=== PATIENT | male | born 1930 | race Caucasian/White ===

== ENCOUNTER 2016-08-27 19:01 | Inpatient (IN) ==
[2016-08-27] MEDS ORDERED: ONDANSETRON 4 MG/2 ML VIAL IV STA (19:36)
[2016-08-27] MEDS ORDERED: ASPIRIN 325 MG TABLET PO STA (19:36)
[2016-08-27] MEDS ORDERED: NITROGLYCERIN SL 0.4 MG TABLET SL PRN (19:36)
[2016-08-27] MEDS ORDERED: SODIUM CHLORIDE 0.9% 1,000 ML IV STA (19:36)
--- NOTE | 2016-08-27 19:42 | Emergency Department Note ---
IMindy Hilary, am scribing for, and in the presence of, Messi Mena MD 19: 39. IRajesh Andrew, MD, personally performed the services described in this documentation, ascribed by Michelle Guillen in my presence, and it is both accurate and complete 942 . Arrival - Arrival Chief Complaint: Chest Pain Stated Complaint: chest pain ED Nursing Triage Note: pt to [facility] with family, pt c/o cp radiating to left arm since this am. Mode of Arrival: Wheelchair Limitations: No Limitations Source: Patient - History of Present Illness HPI Narrative: Pt is a 85 y/o white male presenting to the ED with c/o chest pain which onset 2 days ago. He states that he was sitting, watching TV when his chest pain started. Pt confirms chest pain and nausea during onset but denies abdominal pain or melena. He says its a dull ache on his left side when he is just sitting but when he walks around the pain starts again. He reports that unlike normal he has to walk with his cane or hold on to something. No other complaints or problems stated in the ED. Pt has a PMHx of CAD, HTN, [place], Pacemaker and NIDDM. Onset (ago): day(s) Consistency: constant, now resolved Severity: mild Quality: dull Allergies/Adverse Reactions: Allergies Allergy/AdvReac Type Severity Reaction Status Date / Time No Known Allergies Allergy Verified 08/27/16 19:12 Home Medications: Home Medications Medication Instructions Recorded Confirmed Type Finasteride 5 mg PO BEDTIME 10/09/14 08/27/16 History Tamsulosin [Flomax] 0.4 mg PO BEDTIME 10/09/14 08/27/16 History Aspirin [Ecotrin] 81 mg PO BEDTIME 04/04/16 08/27/16 History Acetaminophen Tab [Tylenol Tab] 325 mg PO Q4H PRN 07/03/16 08/27/16 History Amlodipine Besylate [Amlodipine 2.5 mg PO DAILY 08/10/16 08/27/16 History Besylate] Carvedilol [Carvedilol] 12.5 mg PO BID 08/10/16 08/27/16 History Meclizine HCl 25 mg PO DAILY PRN 08/10/16 08/27/16 History Meloxicam 7.5 mg PO DAILY 08/10/16 08/27/16 History Omeprazole [Omeprazole] 20 mg PO DAILY 08/10/16 08/27/16 History Simvastatin [Simvastatin] 40 mg PO QPM 08/10/16 08/27/16 History metOLazone [Metolazone] 2.5 mg PO QOTHER DAY 08/10/16 08/27/16 History Review of System - Review of System 12 point system: reviewed and no additional remarkable complaints except as stated - Review of System Constitutional: Absent: fever Cardiovascular: Present: chest pain (left side) Gastrointestinal: Present: nausea. Absent: abdominal pain Medical,Surgical,& Family Hx - Medical History Cardio: History of: CAD, Hypertension, [place], Pacemaker Endocrine: History of: Diabetes Mellitus (NIDDM) Musculoskeletal: History of: Musculoskeletal Problems - Surgical History Cardiac Surgeries: Sugical HX of: Cardiac Catheterization, Cardiac Surgery ( bypass several years ago), Internal Defibrillator Thoracic Surgeries: Patient denies;: Organ Transplant, Lobectomy HEENT Surgeries: Patient denies: Thyroid Surgery Abdominal Surgeries: Surgical HX of: Abdominal Surgery, Cholecystectomy - Family History Family History: Reports;: Family Cancer (sister), Family Heart Disease (brother- [place]), Family Hypertension (mother) - Social History Smoking Status: Never smoker Frequency of Alcohol Use: None Type of Drug Use: None Exam Vital Signs: Vital Signs Temperature 97.8 F 08/27/16 22:18 Pulse Rate 71 08/27/16 22:18 Respiratory Rate 20 08/27/16 22:18 Blood Pressure 159/73 08/27/16 22:18 O2 Sat by Pulse Oximetry 100 08/27/16 22:18 - General General appearance: alert, in no apparent distress - Head Head exam: Present: atraumatic, normocephalic - Eye Eye exam: Present: normal appearance, PERRL, EOMI - ENT ENT exam: Present: mucous membranes moist, TM's normal bilaterally. Absent: mucous membranes dry - Neck Neck exam: Present: full ROM, trachea midline. Absent: tenderness - Chest Chest inspection: Present: symmetric chest wall rise. Absent: tenderness - Respiratory Respiratory exam: Present: normal lung sounds bilaterally. Absent: respiratory distress - Cardiovascular Cardiovascular exam: Present: regular rate, normal rhythm, normal heart sounds. Absent: murmur, rubs, gallop - Abdominal Exam Abdominal exam: Present: soft, normal bowel sounds. Absent: distention, tenderness - Extremities Exam Extremities exam: Present: full ROM. Absent: tenderness - Back Exam Back exam: Present: full ROM. Absent: tenderness - Neurological Exam Neurological exam: Present: alert, oriented X3, CN II-XII intact. Absent: motor sensory deficit - Psychiatric Psychiatric exam: Present: normal affect, normal mood - Skin Skin exam: Present: warm, dry, intact, normal color. Absent: rash Course Course Narrative: Sodium 128, negative troponin. Patient discussed with Dr. Evans for admission and repeat troponin levels with cardiology consult in the morning. Results - Labs CBC & BMP: 08/27/16 19:18 08/27/16 19:18 Lab Results: I have reviewed the patients labs Labs: Laboratory Tests 08/27/16 08/27/16 08/27/16 19:18 19:18 19:18 WBC 7.5 RBC 3.94 Hgb 12.3 L Hct 34.0 L MCV 86.3 L MCHC 36.2 H Plt Count 214 [place] # (Auto) 0.9 H Sodium 128 L Potassium 4.3 Chloride 92 L Carbon Dioxide 30 BUN 31 H Creatinine 1.70 H Glucose 135 H Calculated Osmolality 265.1 L AST 41 H Alkaline Phosphatase 42 L Troponin I < 0.015 Total Protein 6.5 - Diagnostic Findings Procedure: Chest x-ray: report reviewed by me (Mild atelectatic change in the lower lungs. Otherwise unchanged. Stable cardiomegaly. Pacemaker as before) Disposition Clinical Impression: Atypical chest pain Case discussed with: patient, patient's family Disposition: Still a Patient Condition: Stable
[2016-08-27] MEDS ORDERED: ONDANSETRON 4 MG/2 ML VIAL ONE (19:43)
[2016-08-27] MEDS ORDERED: ASPIRIN 325 MG TABLET ONE (19:43)
[2016-08-27 19:44] LABS: Basophils # 0.1 10*3/uL (0.0-0.2); Basophils % 0.7 % (0.0-0.8); Eosinophils # 0.1 10*3/uL (0.0-0.87); Eosinophils % 1.1 % (0.00-10.9); Hemoglobin 12.3 GM/DL (14.0-18.0); Immature Granulocytes % 0.4 %; Immature Granulocytes Absolute 0.03 #; Lymphocytes % 39.7 % (21.2-54.2); Mean Corpuscular HGB Conc 36.2 GM/DL (32-36); Mean Corpuscular Hemoglobin 31 PG (27-34); Mean Corpuscular Volume 86.3 FL (87-102); Mean Platelet Volume 10.6 FL (9.6-12.0); Monocytes # 0.9 10*3/uL (0.11-0.8); Monocytes % 11.9 % (1.7-12.7); Neutrophils # 3.5 10*3/uL (1.4-7.4); Neutrophils % 46.2 % (38.7-73.9); Platelet Count 214 T/CUMM (130-400); Red Blood Count 3.94 MC/CUMM (3.8-5.5); Red Cell Distribution Width 13.1 % (9.3-17.3); White Blood Count 7.5 T/CUMM (4-12)
[2016-08-27 20:05] LABS: Albumin 3.7 G/DL (3.4-5.0); Bilirubin,Total 0.7 MG/DL (0.2-1.0); Calcium 9.3 MG/DL (8.5-10.1); Osmolality,Calculated 265.1 MOS/KG (273-304); Potassium 4.3 MMOL/L (3.5-5.1); Total Protein 6.5 G/DL (6.4-8.3)
--- NOTE | 2016-08-27 20:20 | XRay Report ---
History: Chest pain Date: 08/27/2016 Study: Chest x-ray AP portable Comparison exam: February 06, 2016 There is cardiomegaly as before. The mediastinal contours are unchanged in this patient status post prior median sternotomy. The pulmonary vasculature is not engorged. A left subclavian multiple lead transvenous pacemaker/defibrillator device is intact and unchanged. There is no gross pleural effusion. There is some minimal strandy nonspecific atelectasis in the lower lungs, right greater than left. There are some scattered emphysematous changes. Osseous structures are unchanged. Impression: Mild atelectatic change in the lower lungs. Otherwise unchanged. Stable cardiomegaly. Pacemaker as before PROCEDURE INTERPRETED AT [facility] DEPARTMENT OF RADIOLOGY Final Report Signed by: Dr. Juana Rai
[2016-08-27] MEDS ORDERED: ONDANSETRON 4 MG/2 ML VIAL IV PRN (20:38)
[2016-08-27] MEDS ORDERED: ACETAMINOPHEN 325 MG TABLET PO PRN (20:38)
[2016-08-27] MEDS ORDERED: MORPHINE 2 MG/1 ML SYRINGE IV PRN (20:38)
[2016-08-27] MEDS: SODIUM CHLORIDE 0.9% 1,000 ML IV SCH (22:23)
[2016-08-27] MEDS: DOCUSATE SODIUM 100 MG CAPSULE PO SCH (22:24)
--- NOTE | 2016-08-28 04:34 | EKG Report ---
Stationary ECG Study [facility] ER Test Date: 08/27/2016 7:08:01 PM Pat Name: HERVE MOSQUEDA Department: Room: 293 Gender: M Supply Teacher: : 1930 Requested by: Messi Mena Order Number: [id number] Reading MD: MELISSA LINDQUIST Intervals [place] Rate: 72 P: -34 MO: 130 QRS: -41 QRSD: 129 T: -31 QT: 399 QTc: 423 Interpretive Statements SINUS RHYTHM OLD INFERIOR INFARCT NONSPECIFIC INTRAVENTRICULAR CONDUCTION DELAY Electronically Signed On 08-28-16 13:02:42 CDT by MELISSA LINDQUIST [email or web address]
[2016-08-28] MEDS: SODIUM CHLORIDE 0.9% 1,000 ML IV SCH ×3 (05:57→13:39)
[2016-08-28] MEDS: PANTOPRAZOLE 40 MG TABLET PO SCH (08:46)
[2016-08-28] MEDS: DOCUSATE SODIUM 100 MG CAPSULE PO SCH ×2 (08:47→20:53)
[2016-08-28 11:04] LABS: Troponin I Only < 0.015 NG/ML (0.00-0.045)
--- NOTE | 2016-08-28 12:02 | Cardiology Consult Note ---
History of Present Illness - Data of Consult Patient: known to practice within the last 3 years - Consult Narrative History of present illness: Cardiology consult 85-year-old man admitted with weakness dizziness hyponatremia 128 and atypical left arm pain. Patient was seen with his Josie and his sons Khurram and Jesse. The chest x-ray shows cardiomegaly and a calcified aortic knob but no heart failure. EKG shows atrial pacing with left axis deviation and ST-T wave changes. Troponin is negative 2. The patient does have chronic renal insufficiency with BUN 31 creatinine 1.70. This patient has been dizzy for several weeks. He gets when he had it when he gets up quickly and fell about 2 weeks ago. He is reluctant to use a cane. His appetite is fair. His sons report that he eats erratically. He has a long history of GE reflux and esophageal stricture dilatation. His last EGD was 2014 which showed hiatal hernia only. Currently taking Prilosec 20 mg daily. He does have BPH symptoms and takes Flomax 0.4 mg and finasteride 5 mg daily. He is taking metolazone 2.5 mg every other day. Patient has a long cardiac history. He is status post remote inferior infarction. He is status post two-vessel CABG with GUZMAN graft to LAD and vein graft to right coronary around 1994. The RCA vein graft is noted to be occluded. He is status post MedtronicEvera XT dual-chamber AICD by Dr. Romano 4 EOL July 10. He has had no shocks. He denies sustained palpitations. He had an abnormal but stable Lexiscan cardiac stress test October 09, 2014 which showed inferior scar, no ischemia, EF 44%. He does have type 2 diabetes. Chronic hypertension. Non-smoker nondrinker. Lab data today Sodium 128 potassium 4.3 chloride 92 CO2 30 BUN 31 creatinine 1.70 Glucose 135 magnesium 1.7 Troponin negative 2 White count 7.5 hemoglobin 12.3 hematocrit 34.0 Blood pressure 118/74 pulse 72 and regular He is hard of hearing but alert and cooperative. Faint left carotid bruit. Regular rhythm. No murmur. Decreased breath sounds but clear. Abdomen soft benign. No leg edema. 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 Patient has a chronically occluded right coronary vein graft Abnormal but stable Lexiscan Cardiolite stress test October 09, 2014 showing inferior scar, no ischemia, EF 44%. Status post MedtronicEvera XT dual-chamber AICD July 10, 2013 for end-of-life by Dr. Romano Hyponatremia sodium 128, patient is taking metolazone 2.5 mg every other day and poor p.o. intake Advanced age and frailty Atypical chest pain Long history of GE reflux with stricture and dilatation in the past. BPH symptoms on Flomax and finish steroid Plan Cautious fluids, hold metolazone Echo to reassess EF and PA pressure Lexiscan cardiac stress test in a.m. This patient needs to use a cane at all times for gait support. He is a high fall risk Encourage nutrition. Long talk with patient and Josie and sons Khurram and Jesse SATHISH in a.m. CC: Elio Ortiz MD - Home Medications and Allergies Home Medications: Home Medications Medication Instructions Recorded Confirmed Type Finasteride 5 mg PO BEDTIME 10/09/14 08/27/16 History Tamsulosin [Flomax] 0.4 mg PO BEDTIME 10/09/14 08/27/16 History Aspirin [Ecotrin] 81 mg PO BEDTIME 04/04/16 08/27/16 History Acetaminophen Tab [Tylenol Tab] 325 mg PO Q4H PRN 07/03/16 08/27/16 History Amlodipine Besylate [Amlodipine 2.5 mg PO DAILY 08/10/16 08/27/16 History Besylate] Carvedilol [Carvedilol] 12.5 mg PO BID 08/10/16 08/27/16 History Meclizine HCl 25 mg PO DAILY PRN 08/10/16 08/27/16 History Meloxicam 7.5 mg PO DAILY 08/10/16 08/27/16 History Omeprazole [Omeprazole] 20 mg PO DAILY 08/10/16 08/27/16 History Simvastatin [Simvastatin] 40 mg PO QPM 08/10/16 08/27/16 History metOLazone [Metolazone] 2.5 mg PO QOTHER DAY 08/10/16 08/27/16 History Allergies/Adverse Reactions: Allergies Allergy/AdvReac Type Severity Reaction Status Date / Time No Known Allergies Allergy Verified 08/27/16 19:12 Medical,Surgical,& Family Hx - Medical History Cardio: History of: CAD, Hypertension, [place], Pacemaker Endocrine: History of: Diabetes Mellitus (NIDDM) Musculoskeletal: History of: Musculoskeletal Problems - Surgical History Cardiac Surgeries: Sugical HX of: Cardiac Catheterization, Cardiac Surgery ( bypass several years ago), Internal Defibrillator Thoracic Surgeries: Patient denies;: Organ Transplant, Lobectomy HEENT Surgeries: Patient denies: Thyroid Surgery Abdominal Surgeries: Surgical HX of: Abdominal Surgery, Cholecystectomy - Family History Family History: Reports;: Family Cancer (sister), Family Heart Disease (brother- [place]), Family Hypertension (mother) - Social History Smoking Status: Never smoker Frequency of Alcohol Use: None Type of Drug Use: None Physical Examination Vital Signs Temp Pulse Resp BP Pulse Ox 97.6 F 74 18 105/55 96 08/27/16 19:04 08/27/16 19:04 08/27/16 19:04 08/27/16 19:04 08/27/16 19:04 Result/EKG - Labs CBC & BMP: 08/27/16 19:18 08/27/16 19:18 Labs: Laboratory Results - last 24 hr 08/27/16 08/27/16 08/27/16 19:18 19:18 19:18 WBC 7.5 RBC 3.94 Hgb 12.3 L Hct 34.0 L MCV 86.3 L MCH 31 MCHC 36.2 H RDW 13.1 Plt Count 214 MPV 10.6 Neut % (Auto) 46.2 Lymph % (Auto) 39.7 [place] % (Auto) 11.9 Eos % (Auto) 1.1 Baso % (Auto) 0.7 Neut # (Auto) 3.5 Lymph # (Auto) 3.0 [place] # (Auto) 0.9 H Eos # (Auto) 0.1 Baso # (Auto) 0.1 Immature Gran % 0.4 Nucleated RBC % 0.0 Immature Gran # 0.03 Nucleated RBCs # 0.00 Sodium 128 L Potassium 4.3 Chloride 92 L Carbon Dioxide 30 Anion Gap 10.3 BUN 31 H Creatinine 1.70 H GFR Calculation 43 BUN/Creatinine Ratio 18.00 Glucose 135 H Calculated Osmolality 265.1 L Calcium 9.3 Total Bilirubin 0.70 AST 41 H ALT 21 Alkaline Phosphatase 42 L Total Creatine Kinase CK-MB (CK-2) Troponin I < 0.015 Total Protein 6.5 Albumin 3.7 Globulin 2.8 Albumin/Globulin Ratio 1.3 08/28/16 10:19 WBC RBC Hgb Hct MCV MCH MCHC RDW Plt Count MPV Neut % (Auto) Lymph % (Auto) [place] % (Auto) Eos % (Auto) Baso % (Auto) Neut # (Auto) Lymph # (Auto) [place] # (Auto) Eos # (Auto) Baso # (Auto) Immature Gran % Nucleated RBC % Immature Gran # Nucleated RBCs # Sodium Potassium Chloride Carbon Dioxide Anion Gap BUN Creatinine GFR Calculation BUN/Creatinine Ratio Glucose Calculated Osmolality Calcium Total Bilirubin AST ALT Alkaline Phosphatase Total Creatine Kinase 61 CK-MB (CK-2) 1.2 Troponin I < 0.015 Total Protein Albumin Globulin Albumin/Globulin Ratio
--- NOTE | 2016-08-28 12:57 | Internal Med History&Physical ---
Assessment and Plan (1) Hyponatremia Status: Acute Current Visit: Yes (2) Atypical chest pain Status: Acute Current Visit: Yes (3) Cardiomyopathy Status: Chronic Current Visit: Yes Qualifiers: Cardiomyopathy type: ischemic Qualified Code(s): I25.5 - Ischemic cardiomyopathy (4) Chronic renal insufficiency Status: Chronic Current Visit: Yes Qualifiers: Chronic kidney disease stage: stage 3 (moderate) Qualified Code(s): N18.3 - Chronic kidney disease, stage 3 (moderate) (5) CAD (coronary artery disease) Status: Chronic Current Visit: No Qualifiers: Coronary Disease-Associated Artery/Lesion type: [place] artery [place] vs. transplanted heart: [place] heart (6) Dyslipidemia Status: Chronic Current Visit: No (7) Hypertension Status: Chronic Current Visit: No Qualifiers: Hypertension type: essential hypertension Qualified Code(s): I10 - Essential (primary) hypertension (8) previous myocardial infarction Status: Chronic Current Visit: No (9) Diabetes Status: Chronic Current Visit: Yes Qualifiers: Diabetes mellitus type: type 2 Diabetes mellitus complication status: with kidney complications Diabetes mellitus complication detail: with chronic kidney disease Diabetes mellitus fci insulin use: without moth exterminator use Chronic kidney disease stage: stage 3 (moderate) Qualified Code(s): E11.22 - Type 2 diabetes mellitus with diabetic chronic kidney disease; N18.3 - Chronic kidney disease, stage 3 (moderate) History of Present Illness Chief complaint: chest pain History of present illness: Mr. Amaya is a 85 year old male patient of Dr. Jorge Luis Ortiz with history of CAD , CHF, cardiomyopathy with LVEF 30-35%, HTN, pacemaker placement, who presented to ER with chest pain and dizziness. He was found to have hyponatremia. NSaline started in ER. When he is stabilized, he can be discharged back home. He will have an updated ECHO while here. Home Medications Medication Instructions Recorded Confirmed Type Finasteride 5 mg PO BEDTIME 10/09/14 08/27/16 History Tamsulosin [Flomax] 0.4 mg PO BEDTIME 10/09/14 08/27/16 History Aspirin [Ecotrin] 81 mg PO BEDTIME 04/04/16 08/27/16 History Acetaminophen Tab [Tylenol Tab] 325 mg PO Q4H PRN 07/03/16 08/27/16 History Amlodipine Besylate [Amlodipine 2.5 mg PO DAILY 08/10/16 08/27/16 History Besylate] Carvedilol [Carvedilol] 12.5 mg PO BID 08/10/16 08/27/16 History Meclizine HCl 25 mg PO DAILY PRN 08/10/16 08/27/16 History Meloxicam 7.5 mg PO DAILY 08/10/16 08/27/16 History Omeprazole [Omeprazole] 20 mg PO DAILY 08/10/16 08/27/16 History Simvastatin [Simvastatin] 40 mg PO QPM 08/10/16 08/27/16 History metOLazone [Metolazone] 2.5 mg PO QOTHER DAY 08/10/16 08/27/16 History Allergies Allergy/AdvReac Type Severity Reaction Status Date / Time No Known Allergies Allergy Verified 08/27/16 19:12 Medical,Surgical,& Family Hx - Medical History Cardio: History of: CAD, Hypertension, [place], Pacemaker Endocrine: History of: Diabetes Mellitus (NIDDM) Musculoskeletal: History of: Musculoskeletal Problems - Surgical History Cardiac Surgeries: Sugical HX of: Cardiac Catheterization, Cardiac Surgery ( bypass several years ago), Internal Defibrillator Thoracic Surgeries: Patient denies;: Organ Transplant, Lobectomy HEENT Surgeries: Patient denies: Thyroid Surgery Abdominal Surgeries: Surgical HX of: Abdominal Surgery, Cholecystectomy - Family History Family History: Reports;: Family Cancer (sister), Family Heart Disease (brother- [place]), Family Hypertension (mother) - Social History Smoking Status: Never smoker Frequency of Alcohol Use: None Type of Drug Use: None Marital Status: Lives With:: Spouse Functional capacity: uses cane/walker - Constitutional Constitutional: Present: fatigue, lethargy, malaise, weakness - Cardiovascular Cardiovascular: Present: chest pain with activity - Respiratory Respiratory: Present: dyspnea - Neurological Neurological: Present: dizziness Exam - Constitutional Vitals: Period Temp Pulse Resp BP Sys/Quintana Pulse Ox Last 24 Hr 96.7 F-98.5 F 69-74 16-20 105-161/49-81 92-100 General appearance: no acute distress - Head Head exam: Present: normocephalic - Eye Eye exam: Present: EOMI - Respiratory Respiratory exam: Present: clear to auscultation bilaterally. Absent: rhonchi, wheezes - Cardiovascular Cardiovascular exam: Present: regular rate and rhythm (paced rhythm) - GI/Abdominal GI/Abdominal exam: Present: soft. Absent: tenderness - Extremities Exam Extremities exam: Absent: edema - Neurological Exam Neurological exam: Present: alert - Psychiatric Psychiatric exam: Present: normal mood - Skin Skin exam: Present: warm, dry Results - Labs CBC & BMP: 08/27/16 19:18 08/27/16 19:18
[2016-08-28] MEDS: MAGNESIUM HYDROXIDE SUSP 30 ML UDCUP PO PRN (15:13)
[2016-08-28] MEDS ORDERED: MECLIZINE 12.5 MG TABLET PO PRN (18:09)
[2016-08-28] MEDS ORDERED: SIMVASTATIN 40 MG TABLET PO SCH (19:00)
[2016-08-28] MEDS: TAMSULOSIN 0.4 MG CAPSULE PO SCH (20:52)
[2016-08-28] MEDS: FINASTERIDE 5 MG TABLET PO SCH (20:53)
[2016-08-28] MEDS: ASPIRIN EC 81 MG TABLET PO SCH (20:53)
[2016-08-28] MEDS: CARVEDILOL 12.5 MG TABLET PO SCH (20:53)
[2016-08-29 05:55] LABS: Calcium 8.7 MG/DL (8.5-10.1); Osmolality,Calculated 277.8 MOS/KG (273-304); Potassium 3.3 MMOL/L (3.5-5.1)
--- NOTE | 2016-08-29 09:16 | Cardiology Progress Note ---
<Roxane Castellanos E - Last Filed: 08/29/16 12:25> Assessment and Plan - Time spent with patient Time spent with patient: Greater than 30 minutes (due to assessment, plan, and documentation) (1) Atypical chest pain Status: Acute Assessment and plan: See plan of care listed below. Current Visit: Yes (2) Hyponatremia Status: Acute Assessment and plan: See plan of care listed below. Current Visit: Yes (3) Ischemic cardiomyopathy Status: Chronic Assessment and plan: See plan of care listed below. Current Visit: Yes (4) CAD (coronary artery disease) Status: Chronic Assessment and plan: See plan of care listed below. Current Visit: No Qualifiers: Coronary Disease-Associated Artery/Lesion type: [place] artery [place] vs. transplanted heart: [place] heart (5) GERD (gastroesophageal reflux disease) Status: Chronic Assessment and plan: See plan of care listed below. Current Visit: Yes (6) Hypertension Status: Chronic Assessment and plan: See plan of care listed below. Current Visit: No Qualifiers: Hypertension type: essential hypertension Qualified Code(s): I10 - Essential (primary) hypertension (7) Dyslipidemia Status: Chronic Assessment and plan: See plan of care listed below. Current Visit: No Cardiology - PN: Subj Interval history: Contact Lens Polisher: Dr. Romano PCP: Dr. Elio Ortiz SUMMARY: Mr. Amaya is an 85-year-old male who was admitted with weakness, dizziness, hyponatremia, and atypical left arm pain. He has a history of chronic renal insufficiency, GERD, BPH, coronary artery disease, hypertension, diabetes. EKG showed atrial pacing with left axis deviation and ST-T wave change. Troponin was negative 2. AUGUST 29, 2016: His metolazone was held and he was scheduled for a Lexiscan Cardiolite this morning. Creatinine is 1.4. Potassium 3.3. He received 40 mEq oral replacement today. Vital signs have been stable and he denies any complaints at the present time. Assessment/Plan: 1. Atypical chest pain -patient was for Lexiscan Cardiolite stress test today which he tolerated without difficulty. Will await these results. 2. Hyponatremia -metolazone is on hold. Sodium is up to 137 today. 3. Ischemic cardiomyopathy -he is status post Medtronic Evera XT dual-chamber ICD July 10, 2013 for end-of-life by Dr. Romano. Echocardiogram on 1717 revealed EF 45%, grade 1 diastolic dysfunction, biatrial enlargement, aortic valve sclerosis with trace insufficiency. 4. CAD S/p CABG -he is status post two-vessel CABG with GUZMAN graft to the LAD and vein graft to the right coronary around 1994. The RCA vein graft is noted to be occluded. He had an abnormal but stable Lexiscan Cardiolite stress test October 09, 2014 showing inferior scar, no ischemia, EF 44%. Recommend continuing beta carolyn, aspirin, statin. DERIK inhibitor contraindicated due to renal insufficiency with creatinine 1.7, now 1.4. 5. GERD -continue PPI. 6. Hypertension - Currently well controlled. Will continue to monitor and adjust accordingly. 7. Dyslipidemia - Continue lipid lowering agent. Exam (Progress Note) - Constitutional Vitals: Period Temp Pulse Resp BP Sys/Quintana Pulse Ox Last 24 Hr 97.2 F-98.8 F 69-75 12-20 104-161/50-81 93-100 Exam: General: Present: Appears Well, No Apparent Distress. Pleasant and cooperative. Appears comfortable. Hard of hearing. HEENT: Present: PERRL, Normocephaly, atraumatic. Mucus Membranes Moist. No jaundice noted. Conjunctiva moist and clear, sclerae anicteric Neck: Present: Supple Neck, Midline Trachea, No Masses, Faint left Bruit, No tenderness Cardiac: Present: Regular Rate and Rhythm, No Murmur Lungs: Present: Clear to auscultation bilaterally, no wheeze, rhonchi, rales. Neuro: Present: Awake, alert, and oriented x3. Moves all extremities well without hemiparesis or paralysis. Grossly Intact. Absent: Resting Tremor, Essential Tremor Abdomen: Present: Soft, Active Bowel Sounds, No Masses, Non-Tender, nondistended. No abdominal bruit or thrill noted. Skin: Present: Clear. Absent: Rash, No skin breakdown. Back: Normal inspection, no vertebral tenderness. Musculoskeletal: Present: No Fluid Collection, No Pain, Normal Range of Motion Extremities: Present: Normal Gait, No Clubbing, No Cyanosis, Upper Extr. Pulses 2+, Lower Extr. Pulses 2+, No edema. Capillary refill less than 3 seconds. Result/EKG - Labs CBC & BMP: 08/27/16 19:18 08/29/16 05:00 Lab Results: I have reviewed the past 24 hour labs Labs: Laboratory Results - last 24 hr 08/28/16 08/29/16 10:19 05:00 Sodium 137 Potassium 3.3 L Chloride 99 Carbon Dioxide 30 Anion Gap 11.3 BUN 21 H Creatinine 1.40 H GFR Calculation 55 BUN/Creatinine Ratio 15.00 Glucose 126 H Calculated Osmolality 277.8 Calcium 8.7 Total Creatine Kinase 61 CK-MB (CK-2) 1.2 Troponin I < 0.015 - EKG EKG results: interpreted by me, sinus rhythm (with occasional PVC) <Len Henriquez - Last Filed: 08/29/16 17:59> Exam (Progress Note) - Constitutional Vitals: Period Temp Pulse Resp BP Sys/Quintana Pulse Ox Last 24 Hr 96.7 F-98.8 F 67-75 12-20 104-162/50-75 93-98 Result/EKG - Labs CBC & BMP: 08/27/16 19:18 08/29/16 05:00 Labs: Laboratory Results - last 24 hr 08/29/16 05:00 Sodium 137 Potassium 3.3 L Chloride 99 Carbon Dioxide 30 Anion Gap 11.3 BUN 21 H Creatinine 1.40 H GFR Calculation 55 BUN/Creatinine Ratio 15.00 Glucose 126 H Calculated Osmolality 277.8 Calcium 8.7
--- NOTE | 2016-08-29 09:16 | Event Note ---
Patient underwent Lexiscan stress testing due to gait instability and weakness. Patient tolerated Lexiscan without incident. Occasional PVC noted on baseline EKG. No significant EKG changes noted during testing. Patient had no chest pain, shortness of breath, dizziness, lightheadedness, or syncope. Patient now to nuclear medicine for final scan. Dr. Henriquez to read, interpret, and advise.
[2016-08-29] MEDS ORDERED: REGADENOSON 0.4 MG/5 ML SYRINGE IV ONE ×2 (10:49→10:51)
[2016-08-29] MEDS ORDERED: POTASSIUM CHLORIDE 20 MEQ TABLET PO ONE (11:46)
--- NOTE | 2016-08-29 12:07 | ECHO Report ---
Mikhail Amaya Exam Date: 08/29/2016 07:27 Referring Physician: Technologist: rosario Gentile ARDMS, RVT Age: 85 Ht (in): 74 Wt (lb): 185 Gender: M Exam Location: [facility] Echo Indications: Chest pain, unspecified, Weakness, Dizziness and giddiness, Essential (primary) hypertension, CAD w/previous CABG, AICD, ICM BP: 109 / 50 HR: 74 Rhythm: Sinus Technical Quality: IMPRESSIONS The left ventricle is normal in size, with mild concentric hypertrophy. The basal to mid inferior segments are thin and akinetic, the remaining segments have normal systolic thickening. Estimated left ventricle ejection fraction 45%. Grade 1 diastolic dysfunction. The right ventricle is mildly dilated, with decreased systolic function. ICD wire in the right ventricle. Biatrial enlargement. Aortic valve sclerosis, without stenosis, with trace insufficiency. MEASUREMENTS (Male / Female) Normal Values 2D ECHO LV Diastolic Diameter PLAX 6.3 cm 4.2 - 5.9 / 3.9 - 5.3 cm LV Systolic Diameter PLAX 4.0 cm LV Fractional Shortening PLAX 37.1 % IVS Diastolic Thickness 1.1 cm 0.6 - 1.0 / 0.6 - 0.9 cm LVPW Diastolic Thickness 1.2 cm 0.6 - 1.0 / 0.6 - 0.9 cm RV Internal Dim ED PLAX 3.5 cm Aortic Root Diameter 3.6 cm LA Systolic Diameter LX 4.6 cm 3.0 - 4.0 / 2.7 - 3.8 cm DOPPLER TR Peak Velocity 232.0 cm/s TR Peak Gradient 21.5 mmHg FINDINGS Left Ventricle The left ventricle is normal in size, with mild concentric hypertrophy. The basal to mid inferior segments are thin and akinetic, the remaining segments have normal systolic thickening. Estimated left ventricle ejection fraction 45%. Grade 1 diastolic dysfunction. Right Ventricle The right ventricle is mildly dilated, with decreased systolic function. ICD wire in the right ventricle. Right Atrium The right atrium is mildly enlarged. Left Atrium The left atrium is moderately dilated. Mitral Valve Mitral valve sclerosis. Mild mitral valve regurgitation. Aortic Valve Aortic valve sclerosis, without stenosis, with trace insufficiency. Tricuspid Valve Morphologically normal tricuspid valve. Trace tricuspid valve regurgitation. Estimated pulmonary artery systolic pressure 22 mmHg plus RA pressure. Pulmonic Valve Morphologically normal pulmonic valve. Trace pulmonary valve regurgitation. Pericardium Normal pericardium, with trace posterior effusion. Aorta Normal ascending aorta dimension. Len Henriquez (Electronically Signed) Final Date: 29 August 2016 12:06
[2016-08-29] MEDS: CARVEDILOL 12.5 MG TABLET PO SCH ×2 (13:44→21:08)
[2016-08-29] MEDS: amLODIPine 2.5 MG TABLET PO SCH (13:44)
[2016-08-29] MEDS: DOCUSATE SODIUM 100 MG CAPSULE PO SCH ×2 (13:44→21:08)
[2016-08-29] MEDS: PANTOPRAZOLE 40 MG TABLET PO SCH (13:44)
--- NOTE | 2016-08-29 15:32 | Internal Med Progress Note ---
Assessment and Plan (1) Atypical chest pain Status: Acute Assessment and plan: Stress test done today, awaiting results Current Visit: Yes (2) Hyponatremia Status: Resolved Assessment and plan: Sodium this a.m. 137 Current Visit: Yes (3) Chronic renal insufficiency Status: Chronic Assessment and plan: Follow daily labs, BUN/creatinine today 19/03.4 stable Current Visit: Yes Qualifiers: Chronic kidney disease stage: unspecified stage Qualified Code(s): N18.9 - Chronic kidney disease, unspecified (4) Ischemic cardiomyopathy Status: Chronic Current Visit: Yes (5) Atherosclerotic heart disease of [place] coronary artery with angina pectoris Status: Acute Current Visit: Yes (6) Dyslipidemia Status: Chronic Current Visit: Yes (7) Hypertension Status: Chronic Assessment and plan: Continue antihypertensives Current Visit: Yes Qualifiers: Hypertension type: essential hypertension Qualified Code(s): I10 - Essential (primary) hypertension Internal Medicine - PN: Subj Interval history: PCP: Dr. Ortiz Patient seen and examined at the telemetry floor, accompanied by his at the bedside. Patient sitting in the bed having lunch. Patient is a poor historian, has difficulty hearing, No overnight events reported by the patient or the nurse. Does not give any new complaints today. Gives no complaint of chest pain shortness of breath headaches or dizziness. Patient was admitted from the ER for weakness dizziness found to have hyponatremia, had atypical left chest pain/arm pain. history of CAD, CHF, cardiomyopathy with LVEF 30-35%, HTN, pacemaker placement. Coronary artery disease status post 2 vessel CABG. Exam (Progress Note) - Constitutional Vitals: Period Temp Pulse Resp BP Sys/Quintana Pulse Ox Last 24 Hr 97.7 F-98.8 F 67-75 12-20 104-162/50-75 93-100 Exam: GENERAL APPEARANCE: alert and oriented, pleasant, in no acute distress, . HEENT: normal. Has difficulty hearing. NECK/THYROID: neck supple, full range of motion,. HEART: regular rate and rhythm, has pacemaker in place. LUNGS: clear to auscultation bilaterally, no wheezes, rales, rhonchi. ABDOMEN: soft, nontender, nondistended, no organomegaly , bowel sounds present. EXTREMITIES: no edema. NEUROLOGIC: alert and oriented, cranial nerves 2-12 grossly intact, Results - Labs CBC & BMP: 08/27/16 19:18 08/29/16 05:00 Lab Results: I have reviewed the past 24 hour labs
--- NOTE | 2016-08-29 15:43 | Nuclear Medicine Report ---
Test was interpreted by Dr. Len Espitia. INDICATION: Chest pain, history of ischemic cardiomyopathy. PROCEDURE: Lexiscan pharmacological cardiac stress test was performed due to gait instability and weakness. At rest, 10 mCi of 99Technetium with Sestamibi was injected and rest images were obtained. The patient was then injected 0.4 mg of IV Lexiscan. Post pharmacological stress, 30 mCi of 99Technetium with Sestamibi was injected and post stress images were obtained. FINDINGS: At rest, atrial paced rhythm 72 beats per minute, blood pressure 138/ 74 mmHg. Inferior Q-waves, shallow inferior T-waves and shallow inverted T- waves V2 through V5, IVCD. Post Lexiscan injection, blood pressure 117/62, occasional PVCs, atrial paced rhythm, without significant new ST-T changes, compared to baseline. There was no chest pain. Rest and post stress gated and perfusion images were reviewed. There are no motion artifacts. The end- diastolic volume is 98 mL, the end-systolic volume is 49 mL, the inferior wall is akinetic, the remaining wright have normal systolic thickening. The calculated left ventricular ejection fraction is 50%. At rest, there is a large area of severely decreased activity in the basal/mid inferior wall segments, which does not change post Lexiscan injection, suggestive of old myocardial disease, without ischemia. There is also an area of small size, in the anteroseptal/apical region of mildly decreased activity both at rest and post stress, also suggestive of old myocardial disease, without superimposed ischemia. CONCLUSION: 1. CLINICALLY AND ELECTRICALLY NONDIAGNOSTIC LEXISCAN PHARMACOLOGICAL STRESS TEST. 2. NORMAL LEFT VENTRICULAR SIZE, WITH PRESERVED SYSTOLIC FUNCTION, EJECTION FRACTION 50%, WITH INFERIOR AKINESIS. OLD MYOCARDIAL DISEASE, WITHOUT ISCHEMIA , IN THE AREAS DESCRIBED ABOVE. 3. THIS IS A [id number] RISK TEST FOR FUTURE CARDIOVASCULAR EVENTS. Procedure performed and interpreted at [facility] Department of Radiology. [facility]
[2016-08-29] MEDS ORDERED: SIMVASTATIN 40 MG TABLET PO SCH (21:00)
[2016-08-29] MEDS: TAMSULOSIN 0.4 MG CAPSULE PO SCH (21:08)
[2016-08-29] MEDS: ASPIRIN EC 81 MG TABLET PO SCH (21:08)
[2016-08-29] MEDS: FINASTERIDE 5 MG TABLET PO SCH (21:08)
[2016-08-30 05:04] LABS: Basophils % 0.6 % (0.0-0.8); Eosinophils # 0.1 10*3/uL (0.0-0.87); Eosinophils % 1.8 % (0.00-10.9); Hematocrit 32.5 VOL% (42.0-52.0); Hemoglobin 11.3 GM/DL (14.0-18.0); Immature Granulocytes % 0.5 %; Immature Granulocytes Absolute 0.03 #; Lymphocytes # 2.5 10*3/uL (1.4-4.0); Lymphocytes % 37.8 % (21.2-54.2); Mean Corpuscular HGB Conc 34.8 GM/DL (32-36); Mean Corpuscular Hemoglobin 31 PG (27-34); Mean Corpuscular Volume 88.3 FL (87-102); Mean Platelet Volume 10.9 FL (9.6-12.0); Monocytes # 0.7 10*3/uL (0.11-0.8); Monocytes % 11.2 % (1.7-12.7); Neutrophils # 3.2 10*3/uL (1.4-7.4); Neutrophils % 48.1 % (38.7-73.9); Platelet Count 186 T/CUMM (130-400); Red Blood Count 3.68 MC/CUMM (3.8-5.5); Red Cell Distribution Width 13.1 % (9.3-17.3); White Blood Count 6.6 T/CUMM (4-12)
[2016-08-30 05:34] LABS: Calcium 8.7 MG/DL (8.5-10.1); Osmolality,Calculated 278.7 MOS/KG (273-304); Potassium 3.4 MMOL/L (3.5-5.1)
--- NOTE | 2016-08-30 07:52 | XRay Report ---
2 view chest. Indication: Cardiomegaly. Comparison: August 27, 2016. The heart is enlarged. There is calcific plaque present within the aortic knob. Post median sternotomy. Cardiac hardware is in satisfactory position. The lung khan are hyperexpanded. Interstitial fibrosis is present. Pleural thickening is seen along both lateral thoraces. No consolidation, pneumothorax, or pleural effusion. Pleural-based calcific densities remains stable bilaterally. Impression: Chronic lung changes. Cardiomegaly. No acute abnormality. PROCEDURE INTERPRETED AT [facility] DEPARTMENT OF RADIOLOGY Final Report Signed by: Dr. Fanta Garcia
[2016-08-30] MEDS: PANTOPRAZOLE 40 MG TABLET PO SCH (08:09)
[2016-08-30] MEDS: CARVEDILOL 12.5 MG TABLET PO SCH (08:09)
[2016-08-30] MEDS: amLODIPine 2.5 MG TABLET PO SCH (08:09)
[2016-08-30] MEDS: DOCUSATE SODIUM 100 MG CAPSULE PO SCH (08:09)
[2016-08-30] MEDS ORDERED: POTASSIUM CHLORIDE 20 MEQ TABLET PO ONE (08:51)
--- NOTE | 2016-08-30 10:49 | Cardiology Progress Note ---
Assessment and Plan - Time spent with patient Time spent with patient: Less than 30 minutes (1) Atypical chest pain Status: Acute Assessment and plan: See plan of care listed below. Current Visit: Yes (2) Hyponatremia Status: Resolved Assessment and plan: See plan of care listed below. Current Visit: Yes (3) Ischemic cardiomyopathy Status: Chronic Assessment and plan: See plan of care listed below. Current Visit: Yes (4) CAD (coronary artery disease) Status: Chronic Assessment and plan: See plan of care listed below. Current Visit: No Qualifiers: Coronary Disease-Associated Artery/Lesion type: [place] artery [place] vs. transplanted heart: [place] heart (5) GERD (gastroesophageal reflux disease) Status: Chronic Assessment and plan: See plan of care listed below. Current Visit: Yes (6) Hypertension Status: Chronic Assessment and plan: See plan of care listed below. Current Visit: Yes Qualifiers: Hypertension type: essential hypertension Qualified Code(s): I10 - Essential (primary) hypertension (7) Dyslipidemia Status: Chronic Assessment and plan: See plan of care listed below. Current Visit: Yes Cardiology - PN: Subj Interval history: Certified Tumor Registrar: Dr. Romano PCP: Dr. Elio Ortiz SUMMARY: Mr. Amaya is an 85-year-old male who was admitted with weakness, dizziness, hyponatremia, and atypical left arm pain. He has a history of chronic renal insufficiency, GERD, BPH, coronary artery disease, hypertension, diabetes. EKG showed atrial pacing with left axis deviation and ST-T wave change. Troponin was negative 2. He underwent Lexiscan stress testing on 09/25/2016 which showed stable CAD, old inferior NC, no active ischemia. AUGUST 30, 2016: Patient has been stable from a cardiac standpoint. He has had no cardiac dysrhythmias per teletypesetter monitor and had stable cardiac stress test. He is okay from cardiac standpoint to be discharged home. Assessment/Plan: 1. Atypical chest pain - He had stable cardiac stress test. This is noncardiac pain. From cardiology standpoint, he can be discharged home to follow up with Dr. Romano in 1-2 weeks. 2. Hyponatremia -Resolved. Metolazone is on hold. Sodium is up to 137 today. If edema or pulmonary congestion returns, could start with low-dose lasix. 3. Ischemic cardiomyopathy -he is status post Medtronic Evera XT dual-chamber ICD July 10, 2013 for end-of-life by Dr. Romano. Echocardiogram on 08/27/16 revealed EF 45%, grade 1 diastolic dysfunction, biatrial enlargement, aortic valve sclerosis with trace insufficiency. Pacemaker last checked the end of May 2016 and was found to be functioning appropriately with primarily atrial pacing. 4. CAD S/p CABG -he is status post two-vessel CABG with GUZMAN graft to the LAD and vein graft to the right coronary around 1994. The RCA vein graft is noted to be occluded. He had an abnormal but stable Lexiscan Cardiolite stress test October 09, 2014 showing inferior scar, no ischemia, EF 44%. Recommend continuing beta carolyn, aspirin, statin. DERIK inhibitor contraindicated due to renal insufficiency with creatinine 1.7, now 1.3. This may be addressed at follow up if creatinine remains stable. 5. GERD -continue PPI. 6. Hypertension - Currently well controlled. Will continue to monitor and adjust accordingly. 7. Dyslipidemia - Continue lipid lowering agent. Exam (Progress Note) - Constitutional Vitals: Period Temp Pulse Resp BP Sys/Quintana Pulse Ox Last 24 Hr 96.7 F-99.2 F 67-75 16-20 103-162/56-75 93-98 Exam: General: Present: Appears Well, No Apparent Distress. Pleasant and cooperative. Appears comfortable. Hard of hearing. HEENT: Present: PERRL, Normocephaly, atraumatic. Mucus Membranes Moist. No jaundice noted. Conjunctiva moist and clear, sclerae anicteric Neck: Present: Supple Neck, Midline Trachea, No Masses, Faint left Bruit, No tenderness Cardiac: Present: Regular Rate and Rhythm, No Murmur Lungs: Present: Clear to auscultation bilaterally, no wheeze, rhonchi, rales. Neuro: Present: Awake, alert, and oriented x3. Moves all extremities well without hemiparesis or paralysis. Grossly Intact. Absent: Resting Tremor, Essential Tremor Abdomen: Present: Soft, Active Bowel Sounds, No Masses, Non-Tender, nondistended. No abdominal bruit or thrill noted. Skin: Present: Clear. Absent: Rash, No skin breakdown. Back: Normal inspection, no vertebral tenderness. Musculoskeletal: Present: No Fluid Collection, No Pain, Normal Range of Motion Extremities: Present: Normal Gait, No Clubbing, No Cyanosis, Upper Extr. Pulses 2+, Lower Extr. Pulses 2+, No edema. Capillary refill less than 3 seconds. Result/EKG - Labs CBC & BMP: 08/30/16 03:51 08/30/16 03:51 Lab Results: I have reviewed the past 24 hour labs Labs: Laboratory Results - last 24 hr 08/30/16 08/30/16 03:51 03:51 WBC 6.6 RBC 3.68 L Hgb 11.3 L Hct 32.5 L MCV 88.3 MCH 31 MCHC 34.8 RDW 13.1 Plt Count 186 MPV 10.9 Neut % (Auto) 48.1 Lymph % (Auto) 37.8 [place] % (Auto) 11.2 Eos % (Auto) 1.8 Baso % (Auto) 0.6 Neut # (Auto) 3.2 Lymph # (Auto) 2.5 [place] # (Auto) 0.7 Eos # (Auto) 0.1 Baso # (Auto) 0.0 Immature Gran % 0.5 Nucleated RBC % 0.0 Immature Gran # 0.03 Nucleated RBCs # 0.00 Sodium 138 Potassium 3.4 L Chloride 100 Carbon Dioxide 29 Anion Gap 12.4 BUN 25 H Creatinine 1.30 GFR Calculation 60 BUN/Creatinine Ratio 19.00 Glucose 104 Calculated Osmolality 278.7 Calcium 8.7 Magnesium 2.0 - EKG EKG results: interpreted by me, sinus rhythm Specialty Discharge - Follow Up or Referrals Follow up with: Khurram Romano MD [Physician] - 1 Week (Follow up with Dr. Romano in 1-2 weeks with pacer check, BMP w/ Mg. )
--- NOTE | 2016-08-30 11:18 | Discharge Summary ---
Hospital Course - Hospital Course Hospital Course: PCP: Dr. Ortiz, 85 year old male patient admitted from the ER for chest pains and dizziness, patient with history of CAD s/p CABG X 2, CHF, cardiomyopathy with LVEF 30-35%, HTN, pacemaker placement. He was found to have hyponatremia. NSaline started in ER. Hyponatremia got resolved. had atypical chest pains. Cardiology consult was done.Stress test showed stable CAD, old inferior [place], no active ischemia. Echo showed grade 1 diastolic dysfunction, normal pulmonary pressure. Medical treatment was adjusted as needed. Diagnosis - Discharge Diagnosis (1) Atypical chest pain Status: Resolved (2) Hyponatremia Status: Resolved (3) Chronic renal insufficiency Status: Chronic (4) Ischemic cardiomyopathy Status: Chronic (5) Atherosclerotic heart disease of [place] coronary artery with angina pectoris Status: Acute (6) Dyslipidemia Status: Chronic (7) Hypertension Status: Chronic Specialty Discharge - Follow Up or Referrals Follow up with: Elio Ortiz MD [Physician] - 09/12/16 10:45 am Khurram Romano MD [Physician] - 09/14/16 1:10 pm (Follow up with Dr. Romano in 1-2 weeks with pacer check, BMP w/ Mg. ) Discharge Plan - Discharge Data Disposition: Disch To Home/Self Care Condition at Discharge: Stable Discharge Diet: heart healthy, low salt diet Activity: resume usual activities as tolerated Hygiene: no restrictions - Discharge Medications New Lisinopril [Prinivil] 5 mg PO DAILY #30 tablet Continue Tamsulosin [Flomax] 0.4 mg PO BEDTIME Finasteride 5 mg PO BEDTIME Acetaminophen Tab [Tylenol Tab] 325 mg PO Q4H PRN PRN Reason: Fever, Headache, Mild Pain Meclizine HCl 25 mg PO DAILY PRN PRN Reason: Vertigo Omeprazole 20 mg PO DAILY Carvedilol 12.5 mg PO BID Aspirin [Ecotrin] 81 mg PO BEDTIME Simvastatin 40 mg PO QPM Amlodipine Besylate 2.5 mg PO DAILY Discontinued metOLazone [Metolazone] 2.5 mg PO QOTHER DAY Meloxicam 7.5 mg PO DAILY - Follow Up or Referral Follow Up: Elio Ortiz MD [Physician] - 09/12/16 10:45 am Khurram Romano MD [Physician] - 09/14/16 1:10 pm (Follow up with Dr. Romano in 1-2 weeks with pacer check, BMP w/ Mg. ) - Forms/Instructions Exam - Constitutional Vitals: Period Temp Pulse Resp BP Sys/Quintana Pulse Ox Last 24 Hr 96.7 F-99.2 F 67-75 16-20 103-162/56-75 93-98 Exam: GENERAL APPEARANCE: alert and oriented, pleasant, in no acute distress, . HEENT: normal. Has difficulty hearing. NECK/THYROID: neck supple, full range of motion,. HEART: regular rate and rhythm, has pacemaker in place. LUNGS: clear to auscultation bilaterally, no wheezes, rales, rhonchi. ABDOMEN: soft, nontender, nondistended, no organomegaly , bowel sounds present. EXTREMITIES: no edema. NEUROLOGIC: alert and oriented, cranial nerves 2-12 grossly intact, Discharge Results Procedures and tests throughout hospitalization: Pending Orders 08/30/16 13:00 Potassium Routine Labs on day of discharge: Labs from last 24 hours 08/30/16 08/30/16 03:51 03:51 WBC 6.6 RBC 3.68 L Hgb 11.3 L Hct 32.5 L MCV 88.3 MCH 31 MCHC 34.8 RDW 13.1 Plt Count 186 MPV 10.9 Neut % (Auto) 48.1 Lymph % (Auto) 37.8 [place] % (Auto) 11.2 Eos % (Auto) 1.8 Baso % (Auto) 0.6 Neut # (Auto) 3.2 Lymph # (Auto) 2.5 [place] # (Auto) 0.7 Eos # (Auto) 0.1 Baso # (Auto) 0.0 Immature Gran % 0.5 Nucleated RBC % 0.0 Immature Gran # 0.03 Nucleated RBCs # 0.00 Sodium 138 Potassium 3.4 L Chloride 100 Carbon Dioxide 29 Anion Gap 12.4 BUN 25 H Creatinine 1.30 GFR Calculation 60 BUN/Creatinine Ratio 19.00 Glucose 104 Calculated Osmolality 278.7 Calcium 8.7 Magnesium 2.0 DS: Provider Date of admission: 08/27/16 20:38 Primary care physician: . No PCP Attending physician on admission: Masha Evans DO Consults: 08/27/16 20:38 Consult to Case Mgmt/Social Srvs [CONS] Routine Reason for Case Mgmt/Social Srvs: Discharge Planning 08/27/16 20:39 Consult to Physician [CONS] Routine Comment: Consulting Provider: Alex Norton Consult to Specialist Group: Cardiology When should Consulting Provider be notified: In am Person Notified: Dr Norton Date Notified: 08/28/16 Time Notified: 10:18 08/29/16 02:50 Consult to Dietitian [CONS] Routine Reason for Dietitian: Diet Recommendations Consult Comment: protein requirements Discharging clinician: Zack Hernandez MD
[2016-08-30] MEDS: MAGNESIUM HYDROXIDE SUSP 30 ML UDCUP PO PRN (11:29)
[2016-08-30] MEDS ORDERED: LISINOPRIL 5 MG TABLET PO SCH (11:30)
[2016-08-30 11:52] VITALS: BP 107/53
== END 2016-08-30 12:55 | disposition home health service (06) | DRG 313 ==
LOC: N.ED 19:01 → N.TELEN 20:38
PROVIDERS: ADMIT Internal Medicine; ATTEND Family Medicine

== ENCOUNTER 2017-05-19 19:37 | Observation (INO) ==
[2017-05-19] MEDS ORDERED: ASPIRIN 325 MG TABLET PO STA (20:07)
[2017-05-19] MEDS ORDERED: LABETALOL 20 MG/4 ML SYRINGE IV STA (20:08)
[2017-05-19 20:19] LABS: Basophils % 0.5 % (0.0-0.8); Eosinophils # 0.1 10*3/uL (0.0-0.87); Eosinophils % 1.3 % (0.00-10.9); Hematocrit 41.8 VOL% (42.0-52.0); Hemoglobin 14.1 GM/DL (14.0-18.0); Immature Granulocytes % 0.4 %; Immature Granulocytes Absolute 0.03 #; Lymphocytes # 3.1 10*3/uL (1.4-4.0); Lymphocytes % 41.8 % (21.2-54.2); Mean Corpuscular HGB Conc 33.7 GM/DL (32-36); Mean Corpuscular Hemoglobin 30 PG (27-34); Mean Corpuscular Volume 88.9 FL (87-102); Mean Platelet Volume 10.3 FL (9.6-12.0); Monocytes # 0.7 10*3/uL (0.11-0.8); Monocytes % 8.7 % (1.7-12.7); Neutrophils # 3.6 10*3/uL (1.4-7.4); Neutrophils % 47.3 % (38.7-73.9); Platelet Count 176 T/CUMM (130-400); Red Cell Distribution Width 14.4 % (9.3-17.3); White Blood Count 7.5 T/CUMM (4-12)
[2017-05-19 20:26] LABS: PT Patient Result 10.1 SECS
[2017-05-19] MEDS ORDERED: LABETALOL 20 MG/4 ML SYRINGE IV ONE (20:39)
[2017-05-19] MEDS ORDERED: ASPIRIN 325 MG TABLET ONE (20:39)
[2017-05-19 21:01] LABS: Alanine Aminotransferase 21 U/L (16-61); Albumin 3.8 G/DL (3.4-5.0); Alkaline Phosphatase 56 U/L (45-117); Aspartate Amino Transferase 18 U/L (0-37); Blood Urea Nitrogen 23 MG/DL (7-18); Glucose 97 MG/DL (74-106); Osmolality,Calculated 278.7 MOS/KG (273-304); Potassium 4.2 MMOL/L (3.5-5.1); Sodium 138 MMOL/L (136-145); Total Protein 6.8 G/DL (6.4-8.3); Troponin I Only < 0.015 NG/ML (0.00-0.045)
[2017-05-19] MEDS ORDERED: ACETAMINOPHEN 325 MG TABLET PO PRN (23:35)
[2017-05-19] MEDS ORDERED: hydrALAZINE 20 MG/1 ML VIAL IV PRN (23:35)
[2017-05-19] MEDS ORDERED: ONDANSETRON 4 MG/2 ML VIAL IV PRN (23:35)
[2017-05-19] MEDS ORDERED: GLUCAGON 1 MG VIAL IM PRN (23:35)
[2017-05-19] MEDS ORDERED: NITROGLYCERIN SL 0.4 MG TABLET SL PRN (23:35)
[2017-05-19] MEDS ORDERED: DEXTROSE 50% 25 GM/50 ML VIAL IV PRN (23:35)
[2017-05-19] MEDS ORDERED: MORPHINE 2 MG/1 ML SYRINGE IV PRN (23:35)
[2017-05-20 00:26] LABS: Risk Ratio 2.72
[2017-05-20] MEDS: CARVEDILOL 12.5 MG TABLET PO SCH ×3 (01:30→20:42)
[2017-05-20] MEDS: SIMVASTATIN 40 MG TABLET PO SCH ×2 (01:30→20:42)
[2017-05-20] MEDS: INSULIN REGULAR 100 UNIT/ML SUBCUT SCH ×4 (08:55→21:44)
[2017-05-20] MEDS: FINASTERIDE 5 MG TABLET PO SCH (11:34)
[2017-05-20] MEDS: TAMSULOSIN 0.4 MG CAPSULE PO SCH (11:34)
[2017-05-20] MEDS: LISINOPRIL 5 MG TABLET PO SCH (11:34)
[2017-05-20] MEDS: ASPIRIN EC 81 MG TABLET PO SCH (11:35)
[2017-05-20] MEDS: PANTOPRAZOLE 40 MG TABLET PO SCH (11:35)
[2017-05-20] MEDS: POLYETHYLENE GLYCOL POWDER 17 GM PACK PO SCH (11:36)
[2017-05-20] MEDS: ENOXAPARIN 40 MG/0.4 ML SYRINGE SUBCUT SCH (11:37)
[2017-05-21] MEDS: INSULIN REGULAR 100 UNIT/ML SUBCUT SCH ×4 (08:33→21:18)
[2017-05-21] MEDS: LISINOPRIL 5 MG TABLET PO SCH (09:08)
[2017-05-21] MEDS: CARVEDILOL 12.5 MG TABLET PO SCH ×2 (09:08→21:18)
[2017-05-21] MEDS: PANTOPRAZOLE 40 MG TABLET PO SCH (09:08)
[2017-05-21] MEDS: POLYETHYLENE GLYCOL POWDER 17 GM PACK PO SCH (09:08)
[2017-05-21] MEDS: FINASTERIDE 5 MG TABLET PO SCH (09:08)
[2017-05-21] MEDS: ENOXAPARIN 40 MG/0.4 ML SYRINGE SUBCUT SCH (09:08)
[2017-05-21] MEDS: ASPIRIN EC 81 MG TABLET PO SCH (09:08)
[2017-05-21] MEDS: TAMSULOSIN 0.4 MG CAPSULE PO SCH (09:08)
[2017-05-21] MEDS: SIMVASTATIN 40 MG TABLET PO SCH (21:18)
[2017-05-22 08:16] VITALS: BP 163/83
[2017-05-22] MEDS: ASPIRIN EC 81 MG TABLET PO SCH (08:34)
[2017-05-22] MEDS: POLYETHYLENE GLYCOL POWDER 17 GM PACK PO SCH (08:34)
[2017-05-22] MEDS: PANTOPRAZOLE 40 MG TABLET PO SCH (08:34)
[2017-05-22] MEDS: ENOXAPARIN 40 MG/0.4 ML SYRINGE SUBCUT SCH (08:34)
[2017-05-22] MEDS: TAMSULOSIN 0.4 MG CAPSULE PO SCH (08:34)
[2017-05-22] MEDS: CARVEDILOL 12.5 MG TABLET PO SCH (08:34)
[2017-05-22] MEDS: INSULIN REGULAR 100 UNIT/ML SUBCUT SCH (08:35)
[2017-05-22] MEDS: FINASTERIDE 5 MG TABLET PO SCH (08:35)
[2017-05-22] MEDS: LISINOPRIL 5 MG TABLET PO SCH (08:37)
== END 2017-05-22 11:22 | disposition home or self-care (01) ==
LOC: N.EDINP 19:37 → N.ED 19:37 → N.TELES 22:22
PROVIDERS: ADMIT Internal Medicine; ATTEND Family Medicine

== ENCOUNTER 2018-02-09 11:49 | Inpatient (IN) ==
[2018-02-09] MEDS ORDERED: HYDROmorphone 2 MG/1 ML VIAL IV STA ×2 (12:07→14:18)
[2018-02-09] MEDS ORDERED: DIPH/TET/ACEL PERT BOOSTER VACCINE 0.5 ML VIAL IM ONE (12:07)
[2018-02-09] MEDS ORDERED: ONDANSETRON 4 MG/2 ML VIAL IV STA (12:08)
[2018-02-09 13:11] LABS: Basophils # 0.1 10*3/uL (0.0-0.2); Basophils % 0.6 % (0.0-0.8); Eosinophils # 0.1 10*3/uL (0.0-0.87); Eosinophils % 1.3 % (0.00-10.9); Hemoglobin 13.3 GM/DL (14.0-18.0); Immature Granulocytes % 0.7 %; Immature Granulocytes Absolute 0.06 #; Lymphocytes # 1.9 10*3/uL (1.4-4.0); Lymphocytes % 23.2 % (21.2-54.2); Mean Corpuscular HGB Conc 32.4 GM/DL (32-36); Mean Corpuscular Hemoglobin 30 PG (27-34); Mean Corpuscular Volume 92.3 FL (87-102); Monocytes # 0.8 10*3/uL (0.11-0.8); Monocytes % 9.7 % (1.7-12.7); Neutrophils # 5.4 10*3/uL (1.4-7.4); Neutrophils % 64.5 % (38.7-73.9); Platelet Count 165 T/CUMM (130-400); Red Blood Count 4.44 MC/CUMM (3.8-5.5); Red Cell Distribution Width 13.1 % (9.3-17.3); White Blood Count 8.3 T/CUMM (4-12)
[2018-02-09 13:26] LABS: PT Patient Result 10.5 SECS; Partial Thromboplastin Time 25.8 SECS (0-40)
[2018-02-09 13:39] LABS: Alanine Aminotransferase 17 U/L (16-61); Albumin 3.2 G/DL (3.4-5.0); Alkaline Phosphatase 65 U/L (45-117); Aspartate Amino Transferase 21 U/L (0-37); Blood Urea Nitrogen 15 MG/DL (7-18); Calcium 8.9 MG/DL (8.5-10.1); Glucose 107 MG/DL (74-106); Osmolality,Calculated 275.7 MOS/KG (273-304); Potassium 4.1 MMOL/L (3.5-5.1); Sodium 138 MMOL/L (136-145); Total Protein 6.8 G/DL (6.4-8.3)
[2018-02-09 13:45] LABS: Lactic Acid 1.3 MMOL/L (0.4-2.0)
[2018-02-09 13:50] LABS: Apearance,Urine Slightly Hazy (Clear); Bilirubin,Urine Negative (Negative); Blood, Urine Small mg/dL (Negative); Glucose,Urine (UA) Negative (Negative); Ketones,Urine Negative (Negative); Nitrite,Urine Negative (Negative); Protein,Urine Negative; RBC,Urine 4 /HPF (0-4); Transitional Epi Cells,Urine Occasional /HPF (<1); Urine Color Yellow (Yellow); Urine Specific Gravity 1.012 (1.001-1.035); WBC,Urine 1 /HPF (0-6)
[2018-02-09] MEDS ORDERED: ONDANSETRON 4 MG/2 ML VIAL IV PRN (14:51)
[2018-02-09] MEDS: HYDROmorphone 2 MG/1 ML VIAL IV PRN ×2 (15:09→19:10)
[2018-02-09] MEDS: LACTATED RINGERS 1,000 ML IV SCH (16:03)
[2018-02-09] MEDS ORDERED: traMADol 50 MG TABLET PO PRN (18:35)
[2018-02-09] MEDS ORDERED: NITROGLYCERIN SL 0.4 MG TABLET SL PRN (18:43)
[2018-02-09] MEDS: GABAPENTIN 100 MG CAPSULE PO SCH (21:42)
[2018-02-10] MEDS: LACTATED RINGERS 1,000 ML IV SCH ×5 (00:10→19:50)
[2018-02-10 06:02] LABS: Basophils % 0.4 % (0.0-0.8); Eosinophils % 0.1 % (0.00-10.9); Hematocrit 36.3 VOL% (42.0-52.0); Hemoglobin 11.8 GM/DL (14.0-18.0); Immature Granulocytes % 0.7 %; Immature Granulocytes Absolute 0.07 #; Lymphocytes # 2.1 10*3/uL (1.4-4.0); Lymphocytes % 20.9 % (21.2-54.2); Mean Corpuscular HGB Conc 32.5 GM/DL (32-36); Mean Corpuscular Hemoglobin 30 PG (27-34); Mean Corpuscular Volume 93.3 FL (87-102); Mean Platelet Volume 11.5 FL (9.6-12.0); Monocytes # 1.4 10*3/uL (0.11-0.8); Monocytes % 14.2 % (1.7-12.7); Neutrophils # 6.3 10*3/uL (1.4-7.4); Neutrophils % 63.7 % (38.7-73.9); Platelet Count 162 T/CUMM (130-400); Red Blood Count 3.89 MC/CUMM (3.8-5.5); Red Cell Distribution Width 13.2 % (9.3-17.3); White Blood Count 9.9 T/CUMM (4-12)
[2018-02-10 06:21] LABS: Calcium 8.4 MG/DL (8.5-10.1); Osmolality,Calculated 280.4 MOS/KG (273-304); Potassium 4.1 MMOL/L (3.5-5.1)
[2018-02-10 06:35] LABS: Risk Ratio 2.45; VLDL CHOLESTEROL 15.4 MG/DL
[2018-02-10] MEDS ORDERED: PHENYLEPHRINE 1 MG/10 ML SYRINGE IV ONE (07:00)
[2018-02-10] MEDS ORDERED: BUPIVACAINE SPINAL 0.75% 2 ML AMP SPINAL ONE (07:00)
[2018-02-10] MEDS ORDERED: ceFAZolin 1,000 MG VIAL ONE (08:02)
[2018-02-10] MEDS: ASPIRIN EC 81 MG TABLET PO SCH (08:02)
[2018-02-10] MEDS: ISOSORBIDE MONONITRATE 30 MG TABLET PO SCH (08:02)
[2018-02-10] MEDS: PANTOPRAZOLE 40 MG TABLET PO SCH (08:03)
[2018-02-10] MEDS: FINASTERIDE 5 MG TABLET PO SCH (08:03)
[2018-02-10] MEDS ORDERED: ONDANSETRON 4 MG/2 ML VIAL IV PRN (08:15)
[2018-02-10] MEDS ORDERED: PROMETHAZINE INJ 25 MG in SODIUM CHLORIDE 0.9% 50 ML IV PRN (08:15)
[2018-02-10] MEDS ORDERED: HYDROmorphone 2 MG/1 ML VIAL IV PRN (08:15)
[2018-02-10] MEDS ORDERED: MEPERIDINE 25 MG/1 ML VIAL IV PRN (08:15)
[2018-02-10] MEDS ORDERED: ceFAZolin 1,000 MG in SYRINGE 1 EACH IV ONE (08:29)
[2018-02-10] MEDS ORDERED: ONDANSETRON 4 MG/2 ML VIAL ONE (09:11)
[2018-02-10] MEDS ORDERED: MEPERIDINE 25 MG/1 ML VIAL ONE (09:11)
[2018-02-10] MEDS ORDERED: MIDAZOLAM 2 MG/2 ML VIAL ONE (09:13)
[2018-02-10] MEDS ORDERED: KETAMINE 500 MG/10 ML VIAL ONE (09:14)
[2018-02-10] MEDS: HYDROmorphone 2 MG/1 ML VIAL IV PRN ×3 (10:40→23:05)
[2018-02-10] MEDS ORDERED: SODIUM CHLORIDE 0.65% NASAL SPRAY 45 ML BOTTLE BOTH NARES PRN (12:54)
[2018-02-10] MEDS: BACITRACIN OINT 0.9 GM PACK TOP SCH ×2 (15:07→20:12)
[2018-02-10] MEDS: ceFAZolin 1,000 MG in SYRINGE 1 EACH IV SCH ×2 (15:08→21:25)
[2018-02-10] MEDS: GABAPENTIN 100 MG CAPSULE PO SCH ×2 (21:16→21:24)
[2018-02-11] MEDS: LACTATED RINGERS 1,000 ML IV SCH ×4 (03:35→15:08)
[2018-02-11 05:39] LABS: Basophils % 0.3 % (0.0-0.8); Eosinophils % 0.4 % (0.00-10.9); Hematocrit 32.6 VOL% (42.0-52.0); Hemoglobin 10.6 GM/DL (14.0-18.0); Immature Granulocytes % 0.4 %; Immature Granulocytes Absolute 0.04 #; Lymphocytes # 1.7 10*3/uL (1.4-4.0); Lymphocytes % 17.3 % (21.2-54.2); Mean Corpuscular HGB Conc 32.5 GM/DL (32-36); Mean Corpuscular Hemoglobin 30 PG (27-34); Mean Corpuscular Volume 92.9 FL (87-102); Mean Platelet Volume 10.9 FL (9.6-12.0); Monocytes # 1.5 10*3/uL (0.11-0.8); Monocytes % 15.3 % (1.7-12.7); Neutrophils # 6.4 10*3/uL (1.4-7.4); Neutrophils % 66.3 % (38.7-73.9); Platelet Count 141 T/CUMM (130-400); Red Blood Count 3.51 MC/CUMM (3.8-5.5); Red Cell Distribution Width 13.2 % (9.3-17.3); White Blood Count 9.7 T/CUMM (4-12)
[2018-02-11 06:10] LABS: Calcium 8.6 MG/DL (8.5-10.1); Osmolality,Calculated 283.4 MOS/KG (273-304); Potassium 4.1 MMOL/L (3.5-5.1)
[2018-02-11] MEDS: ceFAZolin 1,000 MG in SYRINGE 1 EACH IV SCH ×3 (06:33→23:15)
[2018-02-11] MEDS: BACITRACIN OINT 0.9 GM PACK TOP SCH ×3 (09:34→20:48)
[2018-02-11] MEDS: ISOSORBIDE MONONITRATE 30 MG TABLET PO SCH ×2 (09:41→10:39)
[2018-02-11] MEDS: FINASTERIDE 5 MG TABLET PO SCH ×2 (09:41→10:39)
[2018-02-11] MEDS: ASPIRIN EC 81 MG TABLET PO SCH ×2 (09:41→10:39)
[2018-02-11] MEDS: ENOXAPARIN 40 MG/0.4 ML SYRINGE SUBCUT SCH (09:42)
[2018-02-11] MEDS: HYDROmorphone 2 MG/1 ML VIAL IV PRN ×3 (10:03→20:43)
[2018-02-11] MEDS: PANTOPRAZOLE 40 MG TABLET PO SCH (10:39)
[2018-02-11] MEDS: GABAPENTIN 100 MG CAPSULE PO SCH (20:48)
[2018-02-12] MEDS: HYDROmorphone 2 MG/1 ML VIAL IV PRN (05:25)
[2018-02-12] MEDS: ceFAZolin 1,000 MG in SYRINGE 1 EACH IV SCH ×3 (05:29→21:14)
[2018-02-12 07:50] LABS: Basophils % 0.2 % (0.0-0.8); Eosinophils # 0.1 10*3/uL (0.0-0.87); Eosinophils % 0.5 % (0.00-10.9); Hematocrit 31.4 VOL% (42.0-52.0); Hemoglobin 10.2 GM/DL (14.0-18.0); Immature Granulocytes % 0.6 %; Immature Granulocytes Absolute 0.06 #; Lymphocytes # 1.5 10*3/uL (1.4-4.0); Lymphocytes % 16.1 % (21.2-54.2); Mean Corpuscular HGB Conc 32.5 GM/DL (32-36); Mean Corpuscular Hemoglobin 30 PG (27-34); Mean Corpuscular Volume 91.8 FL (87-102); Mean Platelet Volume 10.9 FL (9.6-12.0); Monocytes # 1.2 10*3/uL (0.11-0.8); Monocytes % 12.4 % (1.7-12.7); Neutrophils # 6.7 10*3/uL (1.4-7.4); Neutrophils % 70.2 % (38.7-73.9); Platelet Count 148 T/CUMM (130-400); Red Blood Count 3.42 MC/CUMM (3.8-5.5); White Blood Count 9.6 T/CUMM (4-12)
[2018-02-12] MEDS ORDERED: HYDROmorphone 2 MG/1 ML VIAL IV PRN (07:53)
[2018-02-12 08:16] LABS: Calcium 8.9 MG/DL (8.5-10.1); Osmolality,Calculated 284.4 MOS/KG (273-304)
[2018-02-12] MEDS: FINASTERIDE 5 MG TABLET PO SCH ×2 (09:12→12:52)
[2018-02-12] MEDS: PANTOPRAZOLE 40 MG TABLET PO SCH ×2 (09:12→12:52)
[2018-02-12] MEDS: ENOXAPARIN 40 MG/0.4 ML SYRINGE SUBCUT SCH (09:12)
[2018-02-12] MEDS: ISOSORBIDE MONONITRATE 30 MG TABLET PO SCH (09:12)
[2018-02-12] MEDS: BACITRACIN OINT 0.9 GM PACK TOP SCH ×4 (09:12→21:21)
[2018-02-12] MEDS: ASPIRIN EC 81 MG TABLET PO SCH ×2 (09:12→12:51)
[2018-02-12] MEDS ORDERED: MORPHINE 4 MG/1 ML VIAL IV PRN (09:38)
[2018-02-12] MEDS: traMADol 50 MG TABLET PO PRN ×3 (12:34→22:00)
[2018-02-12] MEDS: METOPROLOL SUCCINATE XL 25 MG TABLET PO SCH (12:34)
[2018-02-12] MEDS: GABAPENTIN 100 MG CAPSULE PO SCH ×2 (21:01→21:21)
[2018-02-13] MEDS: LORazepam 2 MG/1 ML VIAL IV PRN ×2 (01:06→16:50)
[2018-02-13] MEDS: ceFAZolin 1,000 MG in SYRINGE 1 EACH IV SCH ×3 (05:48→22:22)
[2018-02-13] MEDS: METOPROLOL SUCCINATE XL 25 MG TABLET PO SCH (09:36)
[2018-02-13] MEDS: FINASTERIDE 5 MG TABLET PO SCH (09:36)
[2018-02-13] MEDS: ASPIRIN EC 81 MG TABLET PO SCH (09:36)
[2018-02-13] MEDS: ENOXAPARIN 40 MG/0.4 ML SYRINGE SUBCUT SCH (09:36)
[2018-02-13] MEDS: PANTOPRAZOLE 40 MG TABLET PO SCH (09:36)
[2018-02-13] MEDS: BACITRACIN OINT 0.9 GM PACK TOP SCH ×3 (11:43→20:39)
[2018-02-13] MEDS: GABAPENTIN 100 MG CAPSULE PO SCH (22:30)
[2018-02-14] MEDS: ceFAZolin 1,000 MG in SYRINGE 1 EACH IV SCH ×3 (05:59→21:29)
[2018-02-14 09:07] LABS: Basophils % 0.3 % (0.0-0.8); Eosinophils # 0.1 10*3/uL (0.0-0.87); Eosinophils % 1.1 % (0.00-10.9); Hematocrit 32.6 VOL% (42.0-52.0); Hemoglobin 10.7 GM/DL (14.0-18.0); Immature Granulocytes % 0.7 %; Immature Granulocytes Absolute 0.06 #; Lymphocytes # 1.7 10*3/uL (1.4-4.0); Lymphocytes % 18.8 % (21.2-54.2); Mean Corpuscular HGB Conc 32.8 GM/DL (32-36); Mean Corpuscular Hemoglobin 30 PG (27-34); Mean Corpuscular Volume 90.3 FL (87-102); Mean Platelet Volume 10.5 FL (9.6-12.0); Monocytes % 11.6 % (1.7-12.7); Neutrophils # 5.9 10*3/uL (1.4-7.4); Neutrophils % 67.5 % (38.7-73.9); Platelet Count 219 T/CUMM (130-400); Red Blood Count 3.61 MC/CUMM (3.8-5.5); Red Cell Distribution Width 12.8 % (9.3-17.3); White Blood Count 8.8 T/CUMM (4-12)
[2018-02-14] MEDS: ASPIRIN EC 81 MG TABLET PO SCH (09:25)
[2018-02-14] MEDS: BACITRACIN OINT 0.9 GM PACK TOP SCH ×3 (09:26→21:00)
[2018-02-14] MEDS: ENOXAPARIN 40 MG/0.4 ML SYRINGE SUBCUT SCH (09:27)
[2018-02-14] MEDS: LORazepam 2 MG/1 ML VIAL IV PRN ×2 (09:30→21:00)
[2018-02-14] MEDS: PANTOPRAZOLE 40 MG TABLET PO SCH (09:33)
[2018-02-14] MEDS: FINASTERIDE 5 MG TABLET PO SCH (09:33)
[2018-02-14 09:35] LABS: Calcium 8.6 MG/DL (8.5-10.1); Osmolality,Calculated 285.3 MOS/KG (273-304); Potassium 3.5 MMOL/L (3.5-5.1)
[2018-02-14] MEDS ORDERED: TUBERCULIN SKIN TEST 0.1 ML SYRINGE INTRADERM ONE (11:35)
[2018-02-14] MEDS: METOPROLOL SUCCINATE XL 25 MG TABLET PO SCH (16:13)
[2018-02-14] MEDS: GABAPENTIN 100 MG CAPSULE PO SCH (21:03)
[2018-02-15] MEDS: ceFAZolin 1,000 MG in SYRINGE 1 EACH IV SCH ×3 (05:02→22:13)
[2018-02-15] MEDS: BACITRACIN OINT 0.9 GM PACK TOP SCH ×3 (10:27→20:42)
[2018-02-15] MEDS: ASPIRIN EC 81 MG TABLET PO SCH (10:27)
[2018-02-15] MEDS: ENOXAPARIN 40 MG/0.4 ML SYRINGE SUBCUT SCH (10:27)
[2018-02-15] MEDS: METOPROLOL SUCCINATE XL 25 MG TABLET PO SCH (10:28)
[2018-02-15] MEDS: FINASTERIDE 5 MG TABLET PO SCH (10:28)
[2018-02-15] MEDS: PANTOPRAZOLE 40 MG TABLET PO SCH (10:28)
[2018-02-15] MEDS: ACETAMINOPHEN 325 MG TABLET PO PRN (17:42)
[2018-02-15] MEDS: GABAPENTIN 100 MG CAPSULE PO SCH (20:42)
[2018-02-15] MEDS: LORazepam 2 MG/1 ML VIAL IV PRN (20:42)
[2018-02-16] MEDS: ceFAZolin 1,000 MG in SYRINGE 1 EACH IV SCH ×3 (06:05→21:03)
[2018-02-16] MEDS: ACETAMINOPHEN 325 MG TABLET PO PRN ×2 (06:17→15:52)
[2018-02-16] MEDS: ASPIRIN EC 81 MG TABLET PO SCH (11:20)
[2018-02-16] MEDS: PANTOPRAZOLE 40 MG TABLET PO SCH (11:21)
[2018-02-16] MEDS: BACITRACIN OINT 0.9 GM PACK TOP SCH ×3 (11:21→20:59)
[2018-02-16] MEDS: ENOXAPARIN 40 MG/0.4 ML SYRINGE SUBCUT SCH (11:21)
[2018-02-16] MEDS: METOPROLOL SUCCINATE XL 25 MG TABLET PO SCH ×2 (11:21→15:49)
[2018-02-16] MEDS: FINASTERIDE 5 MG TABLET PO SCH (11:21)
[2018-02-16] MEDS ORDERED: MAGNESIUM HYDROXIDE SUSP 30 ML UDCUP PO PRN (17:25)
[2018-02-16] MEDS: traMADol 50 MG TABLET PO PRN (18:30)
[2018-02-16] MEDS: GABAPENTIN 100 MG CAPSULE PO SCH (20:55)
[2018-02-16] MEDS: LORazepam 2 MG/1 ML VIAL IV PRN (20:56)
[2018-02-17] MEDS: LORazepam 2 MG/1 ML VIAL IV PRN (02:58)
[2018-02-17 05:42] LABS: Basophils # 0.1 10*3/uL (0.0-0.2); Basophils % 0.6 % (0.0-0.8); Eosinophils # 0.2 10*3/uL (0.0-0.87); Eosinophils % 1.9 % (0.00-10.9); Hematocrit 32.5 VOL% (42.0-52.0); Hemoglobin 10.6 GM/DL (14.0-18.0); Immature Granulocytes % 1.2 %; Immature Granulocytes Absolute 0.13 #; Lymphocytes # 2.5 10*3/uL (1.4-4.0); Lymphocytes % 22.2 % (21.2-54.2); Mean Corpuscular HGB Conc 32.6 GM/DL (32-36); Mean Corpuscular Hemoglobin 30 PG (27-34); Mean Corpuscular Volume 91.3 FL (87-102); Mean Platelet Volume 10.2 FL (9.6-12.0); Monocytes % 9.3 % (1.7-12.7); Neutrophils # 7.2 10*3/uL (1.4-7.4); Neutrophils % 64.8 % (38.7-73.9); Platelet Count 268 T/CUMM (130-400); Red Blood Count 3.56 MC/CUMM (3.8-5.5); Red Cell Distribution Width 12.9 % (9.3-17.3); White Blood Count 11.1 T/CUMM (4-12)
[2018-02-17 05:56] LABS: Calcium 8.7 MG/DL (8.5-10.1); Potassium 3.3 MMOL/L (3.5-5.1)
[2018-02-17] MEDS ORDERED: BISACODYL 10 MG SUPP RECTAL ONE (06:14)
[2018-02-17] MEDS ORDERED: MAGNESIUM HYDROXIDE SUSP 30 ML UDCUP PO PRN (06:16)
[2018-02-17] MEDS: POTASSIUM CHLORIDE 20 MEQ TABLET PO ONE ×2 (06:39→10:00)
[2018-02-17] MEDS: ceFAZolin 1,000 MG in SYRINGE 1 EACH IV SCH (06:39)
[2018-02-17] MEDS: ENOXAPARIN 40 MG/0.4 ML SYRINGE SUBCUT SCH (09:59)
[2018-02-17] MEDS: BACITRACIN OINT 0.9 GM PACK TOP SCH (09:59)
[2018-02-17] MEDS: METOPROLOL SUCCINATE XL 25 MG TABLET PO SCH (09:59)
[2018-02-17] MEDS: PANTOPRAZOLE 40 MG TABLET PO SCH (09:59)
[2018-02-17] MEDS: FINASTERIDE 5 MG TABLET PO SCH (09:59)
[2018-02-17] MEDS: ASPIRIN EC 81 MG TABLET PO SCH (10:00)
[2018-02-17] MEDS ORDERED: POTASSIUM CHLORIDE 20 MEQ TABLET PO ONE (11:01)
[2018-02-17 12:06] VITALS: BP 158/105
== END 2018-02-17 13:10 | disposition swing bed (61) | DRG 482 ==
LOC: EDUNIT# → EDBD → N.ED 11:49 → N.EDINP 14:51 → N.3E 15:10
PROVIDERS: ADMIT Surgery; ATTEND Surgery